=== PATIENT | female | born 1995 ===

== ENCOUNTER 2020-08-14 06:04 | Inpatient (IN) | payer OTHER ==
[~2020-08-14] VITALS: Ht 144.8 cm; Wt 81.6 kg
[2020-08-14] MEDS ORDERED: IRON325 MG PO (07:54)
[2020-08-14] MEDS ORDERED: PRENATAL CAPLE1 EAC1 PO (07:54)
== END 2020-08-16 15:30 | DRG 807 ==
LOC: LDR 06:04 → OB/GYN 06:04
PROVIDERS: ADMIT Specialist; ATTEND Specialist
PROC: 10E0XZZ Delivery of Products of Conception, External Approach (ICD-10-PCS; principal; 2020-08-14)
PROC: 4A1HXFZ Monitoring of Products of Conception, Cardiac Rhythm, External Approach (ICD-10-PCS; 2020-08-14)
PROC: 3E033VJ Introduction of Other Hormone into Peripheral Vein, Percutaneous Approach (ICD-10-PCS; 2020-08-14)
DX: O80 Encounter for full-term uncomplicated delivery (principal); Z37.0 Single live birth; Z3A.39 39 weeks gestation of pregnancy